=== PATIENT | female | born 1990 ===

== ENCOUNTER 2022-02-17 16:50 | Outpatient (CLI) | payer BC ==
[2022-02-17 17:23] LABS: Mean Corpuscular HGB CONC 34.8 g/dL (32.0-36.0); Mean Corpuscular Hemoglobin 31.2 pg (27.0-33.0); Mean Corpuscular Volume 89.6 fl (81.6-98.3); Mean Platelet Volume 9.8 fl (7.4-10.4); Platelet Count 263 10x3/uL (150-450); RBC Distribution Width 12.7 % (11.5-14.5); Red Blood Cell (RBC) Count 3.85 10x6/uL (3.90-5.03); White Blood Cell (WBC) Count 5.8 10x3/uL (3.5-10.5)
[2022-02-17 17:46] LABS: BHCG - Serum Negative (NEGATIVE); Pregs Control Background? CLEAR/WHITE (CLR/WHITE); Pregs Control Bar Appear? YES (CONTROL BAR)
== END 2022-02-17 16:51 | disposition home or self-care (01) ==
LOC: LABBT 16:50
PROVIDERS: ATTEND Orthopaedic Surgery Hand Surgery
DX: Z01.812 Encounter for preprocedural laboratory examination (principal); M67.432 Ganglion, left wrist
CPT/HCPCS: 84703; 85027

== ENCOUNTER 2022-02-20 06:07 | Day surgery (SDC) | payer BC ==
[2022-02-19 09:38] VITALS: BMI 23.1
[2022-02-20] MEDS ORDERED: Bacitracin Zinc Ointment 30 gm TUBE ONE (08:24)
[2022-02-20] MEDS ORDERED: Neomycin-Polymyxin 1 ML AMP ONE (08:24)
[2022-02-20] MEDS ORDERED: Betamet Acet/Betamet Na Ph 30 MG/5 ML VIAL ONE (08:24)
[2022-02-20] MEDS ORDERED: Bupivacaine PF 0.5% 30 ML VIAL ONE (08:24)
[2022-02-20] MEDS ORDERED: Sodium Chloride 0.9% 100 ML ONE (09:09)
[2022-02-20] MEDS ORDERED: CEFAZOLIN 2 GM VIAL ONE (09:09)
[2022-02-20] MEDS ORDERED: fentaNYL PF 100 MCG/2 ML SYRINGE ONE (09:13)
[2022-02-20] MEDS ORDERED: Ketorolac Tromethamine 30 MG/ML VIAL ONE ×2 (09:18→10:33)
[2022-02-20] MEDS ORDERED: PROPOFOL 200 MG/20 ML VIAL ONE (09:18)
[2022-02-20] MEDS ORDERED: ePHEDrine 50 MG/ML VIAL ONE (09:18)
[2022-02-20] MEDS ORDERED: Dexamethasone 20 MG/5 ML VIAL ONE (09:18)
[2022-02-20] MEDS ORDERED: Ondansetron PF 4 MG/2 ML Vial ONE (09:18)
== END 2022-02-20 12:55 | disposition home or self-care (01) ==
LOC: EDBD → SDC 06:07
PROVIDERS: ATTEND Orthopaedic Surgery Hand Surgery
PROC: 0LB60ZZ Excision of Left Lower Arm and Wrist Tendon, Open Approach (ICD-10-PCS; principal; 2022-02-20)
PROC: 0RBP0ZZ Excision of Left Wrist Joint, Open Approach (ICD-10-PCS; principal; 2022-02-20)
DX: M65.88 Other synovitis and tenosynovitis, other site (principal); M67.432 Ganglion, left wrist; G97.49 Accidental puncture and laceration of other nervous system organ or structure during other procedure; Z86.16 Personal history of COVID-19; Y83.8 Other surgical procedures as the cause of abnormal reaction of the patient, or of later complication, without mention of misadventure at the time of the procedure
CPT/HCPCS: 88304; 88305; J0702; J1100; J1885; J2405; J2704; J3490; S0020